=== PATIENT | female | born 1960 | race Caucasian/White ===

== ENCOUNTER → 2016-09-22 | Outpatient (CLI) | payer BC ==
[~2016-09-22] MED LIST: CETI10TA10 PO; DIPH-416 PO; ESCI1TAB10 PO; FLNIN NAE; HYDR-5688 PO; IBUP-1050 PO; LXP/10 PO; MELO7.5T5 PO; PANT1TAB3 PO; PROM25TA9 PO; QSTP PO
--- NOTE | 2016-09-23 13:47 | MAMMOGRAPHY REPORT ---
BILATERAL DIGITAL SCREENING MAMMOGRAM TOMOSYNTHESIS WITH CAD: 09/22/2016 CLINICAL HISTORY: Routine screening. Patient has no complaints. TECHNIQUE: Breast tomosynthesis in addition to standard 2D mammography was performed. Current study was also evaluated with a Computer Aided Detection (CAD) system. COMPARISON: Comparison is made to exams dated: 09/18/2015 mammogram, 05/22/2013 mammogram, 06/26/2014 mammogram, 11/10/2011 mammogram, 05/15/2010 mammogram - [facility], and 04/22/2009. BREAST COMPOSITION: There are scattered areas of fibroglandular density in both breasts. FINDINGS: The parenchymal pattern is unchanged. There are a few stable benign rim calcifications i n the breasts. No new suspicious mass, architectural distortion or cluster of microcalcifications i s seen. IMPRESSION: ACR BI-RADS CATEGORY 2: BENIGN There is no mammographic evidence of malignancy. A 1 year screening mammogram is recommended. The p atient will receive written notification of the results. Approximately 10% of breast cancers are not detected with mammography. A negative mammographic repor t should not delay biopsy if a clinically suggestive mass is present. Maria A Maradiaga M.D. ay/:09/22/2016 17:06:51 Research Recruiter: Ava OLIVA(R)(M), [facility] letter sent: Normal 1/2 BI-RADS Code: ACR BI-RADS Category 2: Benign
== END | disposition home or self-care (01) ==
LOC: C.MAMM 16:39
PROVIDERS: ATTEND Obstetrics & Gynecology
DX: Z12.31 Encounter for screening mammogram for malignant neoplasm of breast (principal)

== ENCOUNTER → 2016-10-08 | Outpatient (CLI) | payer BC ==
[~2016-10-08] MED LIST changes: -PANT1TAB3 PO; +PANT1TAB48 PO
[2016-10-08 14:18] LABS: URINE APPEARANCE CLOUDY (CLEAR); URINE BILIRUBIN NEG (NEG); URINE COLOR YELLOW; URINE NITRITE POS (NEG); URINE SPECIFIC GRAVITY 1.009 (1.000-1.030); UROBILINOGEN NEG (NEG)
[2016-10-08 14:22] LABS: MANUAL MICROSCOPIC REQUIRED? NO; REVIEW REQ? YES
== END | disposition home or self-care (01) ==
LOC: C.LABSPEC 13:37
PROVIDERS: ATTEND Obstetrics & Gynecology
DX: R39.9 Unspecified symptoms and signs involving the genitourinary system (principal)

== ENCOUNTER → 2016-11-03 | Outpatient (CLI) | payer BC | END | disposition home or self-care (01) | LOC: C.PAPS 16:19 | PROVIDERS: ATTEND Obstetrics & Gynecology | DX: Z01.419 Encounter for gynecological examination (general) (routine) without abnormal findings (principal); N39.3 Stress incontinence (female) (male) ==

== ENCOUNTER 2017-02-26 19:53 | Emergency (ER) | payer BC ==
[~2017-02-26] VITALS: Ht 170.2 cm; Wt 91.0 kg
[~2017-02-26 19:53] MED LIST changes: -CETI10TA10 PO; -ESCI1TAB10 PO; -HYDR-5688 PO; -LXP/10 PO; -PANT1TAB48 PO; -PROM25TA9 PO
[2017-02-26 19:58] VITALS: TEMP 36.8; Ht 170.2 cm; Wt 91.0 kg
[2017-02-26] MEDS ORDERED: SODIUM CHLORIDE 0.9% 1000ML 1,000 ML IV STA (20:20)
[2017-02-26 20:32] LABS: BASO % 0.4 %; BASO ABS # 0.04 K/uL (0-0.2); COMPLETE YES; EOS % 2.1 %; HEMATOCRIT 36.2 % (37-47); IG% 0.3 %; LYMPH ABS # 2.52 K/uL (1.2-3.4); MEAN CELL VOLUME 86.8 fL (80-100); MEAN CORPUSCULAR HGB CONC 33.4 g/dl (32-36); MEAN PLATELET VOLUME 10.9 fL (7.4-10.4); MONO % 6.4 %; NEUT % 63.8 %; PLATELET COUNT 220 K/uL (130-400); RED BLOOD COUNT 4.17 M/uL (4.2-5.4); WHITE BLOOD COUNT 9.32 K/uL (4.8-10.8)
[2017-02-26] MEDS ORDERED: ONDANSETRON 8 MG/54 ML D5W IV STA (20:35)
[2017-02-26 20:44] LABS: URINE APPEARANCE CLEAR (CLEAR); URINE BILIRUBIN NEG (NEG); URINE COLOR YELLOW; URINE NITRITE NEG (NEG); URINE SPECIFIC GRAVITY 1.029 (1.000-1.030); UROBILINOGEN NEG (NEG); ZZUR CULT IF INDIC CLEAN CATCH NO
[2017-02-26] MEDS ORDERED: HYDROmorphone INJ 1 MG/ML SYR IV PRN (20:45)
[2017-02-26 20:50] LABS: ALT/SGPT 25 U/L (12-78); AST/SGOT 16 U/L (15-37); BLOOD UREA NITROGEN 22 mg/dl (7-18); CALCIUM 8.8 mg/dl (8.5-10.1); CARBON DIOXIDE 28 mmol/L (21-32); CHLORIDE 105 mmol/L (98-107); GLUCOSE 126 mg/dl (70-99); POTASSIUM 3.9 mmol/L (3.5-5.1); SODIUM 142 mmol/L (136-145)
[2017-02-26 20:53] LABS: ALKALINE PHOSPHATASE 99 U/L (45-117); MANUAL MICROSCOPIC REQUIRED? NO; REVIEW REQ? YES
[2017-02-26 21:02] LABS: URINE MUCUS PRESENT (NONE PRSENT)
[2017-02-26 21:03] LABS: PREG INTERNAL NEGATIVE QC NEG CLEAR BACKGROUND; PREG INTERNAL POSITIVE QC POS CONTROL LINE
[2017-02-26] MEDS ORDERED: KETOROLAC TROMETHAMINE 30 MG/ML VIAL IV STA (21:14)
--- NOTE | 2017-02-26 21:24 | DIAGNOSTIC IMAGING REPORT ---
CT OF THE ABDOMEN AND PELVIS WITHOUT CONTRAST, STONE PROTOCOL CLINICAL HISTORY: Right flank pain and hematuria. COMPARISON STUDY: CT of the abdomen and pelvis January 07, 2016. TECHNIQUE: Helical axial images of the abdomen and pelvis were obtained without IV or oral contrast according to renal stone protocol. FINDINGS: A 3 mm distal right ureteral calculus just proximal to the ureterovesical junction results in mild right hydroureteronephrosis. There is mild right perinephric infiltration. No additional urinary calculi are identified. There is a 1 cm left hepatic lobe cyst. Fatty infiltration of the liver is noted. Unenhanced images of the spleen, adrenal glands and pancreas are normal. There is no evidence for a bowel obstruction. The appendix is normal. There is colonic diverticulosis without evidence for acute diverticulitis. No suspicious osseous lesions are present. There is no lymphadenopathy. IMPRESSION: 1. 3 mm distal right ureteral calculus which results in mild right hydroureteronephrosis. 2. Colonic diverticulosis without evidence for acute diverticulitis. Electronically signed by: Ramon Dick M.D. 02/26/2017 9:23 PM Dictated Date/Time: 02/26/2017 9:17 PM
[2017-02-26] MEDS ORDERED: LXP/10 PO (21:34)
[2017-02-26] MEDS ORDERED: PANT1TAB48 PO (21:34)
[2017-02-26] MEDS ORDERED: CETI10TA10 PO (21:34)
[2017-02-26] MEDS ORDERED: ESCI1TAB10 PO (21:34)
[2017-02-26] MEDS ORDERED: NORCO 5/325MG HOME PACK PO ONE (22:00)
[2017-02-26] MEDS ORDERED: PHENERGAN 25MG HOMEPACK PO ONE (22:00)
[2017-02-26] MEDS ORDERED: PROM25TA9 PO (22:02)
[2017-02-26] MEDS ORDERED: HYDR-5688 PO (22:02)
[2017-02-26 22:21] VITALS: BP 134/71; PULSE 81; O2SAT 94
--- NOTE | 2017-02-26 23:37 | EMERGENCY ROOM VISIT NOTE ---
History Report prepared by Jas: Mariia Aguirre Under the Supervision of: Dr. Ignacio Charlton M.D. First contact with patient: 20:20 Chief Complaint: BACK PAIN Stated Complaint: PAIN LWR BACK RIGHT SIDE,NAUSEA History of Present Illness The patient is a 56 year old female who presents to the Emergency Room with complaints of sudden lower right back pain beginning 10 hours ago. She rates the pain at a 10/10. The patient reports that she has been nauseous from the pain, and that there was some heme in her urine this morning. The patient reports that she did not fall or do anything unusual that may have prompted the pain. She has a history of colitis and diverticulitis, but has no history of an appendectomy or cholecystectomy. Pt denies LOC, headache, fevers, chills, diaphoresis, visual changes, neck pain, chest pain, breathing difficulties, vomiting, abdominal pain, melena, hematochezia, numbness, weakness, lymphadenopathy, rash, or other complaints. Source of History: patient Onset: 10 hours ago Position: back (right lower) Symptom Intensity: rated at a 10/10 Timing: other (sudden) Review of Systems See HPI for pertinent positives and negatives. A total of ten systems were reviewed and were otherwise negative. Past Medical & Surgical Medical Problems: (1) Colitis (2) Diverticulitis Family History No pertinent family history stated. Social History Smoking Status: Never Smoker Alcohol Use: occasionally Drug Use: none Marital Status: Housing Status: lives with family Occupation Status: employed Current/Historical Medications Scheduled Cetirizine Hcl (Zyrtec), 10 MG PO QPM Escitalopram Oxalate (Lexapro), 10 MG PO QPM Escitalopram Oxalate (Lexapro), 20 MG PO QPM Pantoprazole (Protonix), 40 MG PO DAILY Scheduled PRN Hydrocodone/Acetaminophen 5MG/325MG ([place] 5MG/325MG), 1-2 TABS PO Q6H PRN for Pain Ibuprofen (Advil), 600 MG PO Q6 PRN for Pain or Fever Meloxicam (Mobic), 7.5-15 MG PO DAILY PRN for Pain Promethazine Hcl (Phenergan), 25 MG PO Q6H PRN for Nausea Allergies Coded Allergies: Metronidazole (Verified Allergy, Severe, JOINT PAIN, SWELLING, 6/10/17) Latex1 -Allergic Contact Dermititis (Verified Allergy, Intermediate, ANAPHYLAXIS, 09/16/14) PT REPORTS HAVING INTERNAL SWELLING, REDNESS, & IRRITATION FROM VAGINAL ASSESSMENT Penicillins (Unverified Allergy, Mild, ?, 09/16/14) Physical Exam Vital Signs Date Time Temp Pulse Resp B/P (MAP) Pulse Ox O2 Delivery O2 Flow Rate FiO2 02/26/17 22:21 81 20 134/71 94 02/26/17 21:05 81 20 153/86 97 Room Air 02/26/17 19:58 36.8 72 20 137/83 94 Room Air Physical Exam GENERAL: Awake, alert, uncomfortable-appearing, in no distress HENT: Normocephalic, atraumatic. Oropharynx unremarkable. EYES: Normal conjunctiva. Sclera non-icteric. NECK: Supple. No nuchal rigidity. FROM. No JVD. RESPIRATORY: Clear to auscultation. CARDIAC: Regular rate, normal rhythm. Extremities warm and well perfused. Pulses equal. ABDOMEN: Soft, non-distended. No tenderness to palpation. No rebound or guarding. No masses. RECTAL: Deferred. MUSCULOSKELETAL: Chest examination reveals no tenderness. The back is symmetrical on inspection without obvious abnormality. Right CVA tenderness to palpation. Right flank tenderness. No joint edema. LOWER EXTREMITIES: Calves are equal size bilaterally and non-tender. No edema. No discoloration. NEURO: Normal sensorium. No sensory or motor deficits noted. SKIN: No rash or jaundice noted. Medical Decision & Procedures ER Provider Diagnostic Interpretation: 2149: Radiology results as stated below per my review and radiologist interpretation CT OF THE ABDOMEN AND PELVIS WITHOUT CONTRAST, STONE PROTOCOL CLINICAL HISTORY: Right flank pain and hematuria. COMPARISON STUDY: CT of the abdomen and pelvis January 07, 2016. TECHNIQUE: Helical axial images of the abdomen and pelvis were obtained without IV or oral contrast according to renal stone protocol. FINDINGS: A 3 mm distal right ureteral calculus just proximal to the ureterovesical junction results in mild right hydroureteronephrosis. There is mild right perinephric infiltration. No additional urinary calculi are identified. There is a 1 cm left hepatic lobe cyst. Fatty infiltration of the liver is noted. Unenhanced images of the spleen, adrenal glands and pancreas are normal. There is no evidence for a bowel obstruction. The appendix is normal. There is colonic diverticulosis without evidence for acute diverticulitis. No suspicious osseous lesions are present. There is no lymphadenopathy. IMPRESSION: 1. 3 mm distal right ureteral calculus which results in mild right hydroureteronephrosis. 2. Colonic diverticulosis without evidence for acute diverticulitis. Electronically signed by: Ramon Dick M.D. 02/26/2017 9:23 PM Dictated Date/Time: 02/26/2017 9:17 PM Laboratory Results 02/26/17 20:20 Red Blood Count 4.17, Mean Corpuscular Volume 86.8, Mean Corpuscular Hemoglobin 29.0, Mean Corpuscular Hemoglobin Concent 33.4, Mean Platelet Volume 10.9, Neutrophils (%) (Auto) 63.8, Lymphocytes (%) (Auto) 27.0, Monocytes (%) (Auto) 6.4, Eosinophils (%) (Auto) 2.1, Basophils (%) (Auto) 0.4, Neutrophils # (Auto) 5.93, Lymphocytes # (Auto) 2.52, Monocytes # (Auto) 0.60, Eosinophils # (Auto) 0.20, Basophils # (Auto) 0.04 02/26/17 20:20 Test 02/26/17 20:20 White Blood Count 9.32 K/uL (4.8-10.8) Red Blood Count 4.17 M/uL (4.2-5.4) Hemoglobin 12.1 g/dL (12.0-16.0) Hematocrit 36.2 % (37-47) Mean Corpuscular Volume 86.8 fL (80-100) Mean Corpuscular Hemoglobin 29.0 pg (25-34) Mean Corpuscular Hemoglobin Concent 33.4 g/dl (32-36) Platelet Count 220 K/uL (130-400) Mean Platelet Volume 10.9 fL (7.4-10.4) Neutrophils (%) (Auto) 63.8 % Lymphocytes (%) (Auto) 27.0 % Monocytes (%) (Auto) 6.4 % Eosinophils (%) (Auto) 2.1 % Basophils (%) (Auto) 0.4 % Neutrophils # (Auto) 5.93 K/uL (1.4-6.5) Lymphocytes # (Auto) 2.52 K/uL (1.2-3.4) Monocytes # (Auto) 0.60 K/uL (0.11-0.59) Eosinophils # (Auto) 0.20 K/uL (0-0.5) Basophils # (Auto) 0.04 K/uL (0-0.2) RDW Standard Deviation 42.3 fL (36.4-46.3) RDW Coefficient of Variation 13.1 % (11.5-14.5) Immature Granulocyte % (Auto) 0.3 % Immature Granulocyte # (Auto) 0.03 K/uL (0.00-0.02) Urine Color YELLOW Urine Appearance CLEAR (CLEAR) Urine pH 5.0 (4.5-7.5) Urine Specific Ethel 1.029 (1.000-1.030) Urine Protein NEG (NEG) Urine Glucose (UA) NEG (NEG) Urine Ketones TRACE (NEG) Urine Occult Blood 2+ (NEG) Urine Nitrite NEG (NEG) Urine Bilirubin NEG (NEG) Urine Urobilinogen NEG (NEG) Urine Leukocyte Esterase NEG (NEG) Urine WBC (Auto) 1-5 /hpf (0-5) Urine RBC (Auto) 5-10 /hpf (0-4) Urine Hyaline Casts (Auto) 1-5 /lpf (0-5) Urine Epithelial Cells (Auto) 10-20 /lpf (0-5) Urine Bacteria (Auto) NEG (NEG) Urine Crystals CALCIUM OXALATE (NONE Urine Mucus PRESENT (NONE PRSENT) Anion Gap 9.0 mmol/L (3-11) Est Creatinine Clear Calc Drug Dose 59.9 ml/min Estimated GFR () 58.1 Estimated GFR (Non- 50.1 BUN/Creatinine Ratio 18.0 (10-20) Calcium Level 8.8 mg/dl (8.5-10.1) Total Bilirubin 0.2 mg/dl (0.2-1) Direct Bilirubin < 0.1 mg/dl (0-0.2) Aspartate Amino Transf (AST/SGOT) 16 U/L (15-37) Alanine Aminotransferase (ALT/SGPT) 25 U/L (12-78) Alkaline Phosphatase 99 U/L (45-117) Total Protein 7.2 gm/dl (6.4-8.2) Albumin 3.7 gm/dl (3.4-5.0) Lipase 108 U/L (73-393) Human Chorionic Gonadotropin, Qual NEG (NEG) Laboratory results reviewed by me Medications Administered Medications (Trade) Dose Ordered Sig/Ritu Route Start Time Stop Time Status Last Admin Dose Admin Sodium Chloride 1,000 ml @ 125 mls/hr Q8H STAT IV 02/26/17 20:20 02/26/17 22:48 DC 02/26/17 20:20 125 MLS/HR Ondansetron HCl (Zofran 8mg Iv) 8 mg NOW STAT IV 02/26/17 20:35 02/26/17 20:37 DC 02/26/17 20:44 8 MG Hydromorphone HCl (Dilaudid Inj) 1 mg Q15M PRN IV 02/26/17 20:45 02/26/17 22:48 DC 02/26/17 21:11 1 MG Ketorolac Tromethamine (Toradol Inj) 10 mg NOW STAT IV 02/26/17 21:14 02/26/17 21:15 DC 02/26/17 21:19 10 MG Acetaminophen/ Hydrocodone Bitart ([place] 5/325mg Home Pack) 1 homepack UD ONCE PO 02/26/17 22:00 02/26/17 22:01 DC 02/26/17 22:13 1 HOMEPACK Promethazine HCl (Phenergan 25MG Home Pack) 1 homepack UD ONCE PO 02/26/17 22:00 02/26/17 22:01 DC 02/26/17 22:14 1 HOMEPACK ED Course 2014: The patient was evaluated in room B11. A complete history and physical exam was performed. 2019: Ordered Sodium Chloride 1,000 ml @ 125 mls/hr IV. 2034: Ordered Ondansetron HCl 8 mg IV. 2044: Ordered Dilaudid Inj 1 mg IV. 2109: I checked on the patient, and she is feeling better. 2113: Ordered Toradol Inj 10 mg IV. 2155: I checked on the patient, and she is doing well. 2199: Ordered Promethazine HCl 1 homepack PO, Hydrocodone Bitart/Acetaminophen 1 homepack PO. 2209: I reevaluated the patient. Discussed results and discharge instructions: She verbalized understanding and agreement. The patient is ready for discharge. Medical Decision Medication Reconciliation: I attest that I have personally reviewed the patient' s current medication list Blood pressure screening: Patient was found to have normal blood pressure on screening and does not require follow-up. Prior records/ancillary studies reviewed. Triage Nursing notes reviewed and agree them. Additional history obtained from the family. The patient's history was concerning for flank and abdominal pain. Differential diagnosis: Etiologies such as renal colic, appendicitis, diverticulitis, mesenteric ischemia, aortic pathology, infections, inflammatory bowel disease, PUD, biliary pathology, UTI, as well as others were entertained. Physical examination findings: As above. ER treatment provided: IV normal saline IV Zofran IV Dilaudid IV Toradol On reassessment the patient felt much better. Diagnostic interpretation by me: The labs revealed an unremarkable CBC and chemistry panel.. Urinalysis revealed hematuria. There was no sign of UTI. Imaging studies: CT of the abdomen and pelvis as above. It appears that the patient has isolated renal colic from a right sided stone. She is doing very well. Conservative management was discussed and she was comfortable. By the evaluation outlined above emergent etiologies such as appendicitis, diverticulitis, mesenteric ischemia, aortic pathology, infections, inflammatory bowel disease, PUD, biliary pathology, UTI, as well as others were deemed relatively unlikely. The patient and were informed about the findings as listed above. All questions were answered and they were pleased with the treatment. Return instructions were outlined and the patient was discharged in stable condition. Outpatient prescription management: Phenergan [place] Referral: The pt was referred to [facility] for follow up care regarding their stone. The patient was referred back to her primary care physician for follow-up in 2 to 3 days for a recheck of the current condition due to her blood pressure and liver findings on CT. The chart was completed utilizing [employer] Speech voice recognition software. Grammatical errors, random word insertions, pronoun errors, and incomplete sentences are an occasional consequence of this system due to software limitations, ambient noise, and hardware issues. Any formal questions or concerns about the content, text, or information contained within the body of this dictation should be directly addressed to the physician for clarification. [place] Drug Monitoring Program Search Results: no issues identified Impression Primary Impression: Ureterolithiasis Scribe Attestation The scribe's documentation has been prepared under my direction and personally reviewed by me in its entirety. I confirm that the note above accurately reflects all work, treatment, procedures, and medical decision making performed by me. Departure Information Dispostion Home / Self-Care Prescriptions Hydrocodone/Acetaminophen 5MG/325MG ([place] 5MG/325MG) Tab 1-2 TABS PO Q6H Y for Pain, #20 TAB Prov: Ignacio Charlton MD 02/26/17 Promethazine Hcl (Phenergan) 25 Mg Tab 25 MG PO Q6H Y for Nausea, #10 TAB Prov: Ignacio Charlton MD 02/26/17 Referrals Pro,Hari Hancock M.D. (PCP) Forms HOME CARE DOCUMENTATION FORM, IMPORTANT VISIT INFORMATION Patient Instructions My [facility] Additional Instructions KIDNEY STONE INSTRUCTIONS: Do not drive today because of medication received in the Emergency Room. Hydrocodone/acetaminophen 5/325mg: Take 1-2 pills every 6 hours as needed for pain. Avoid additional Acetaminophen/Tylenol, alcohol, operating machinery or dangerous equipment, working on ladders or roofs, DRIVING, or situations where being under the influence may be dangerous. It is recommended to use a stool softener such as Colace, 100mg twice daily while taking this medication to avoid constipation. Phenergan 25mg: Take one every six hours as needed for nausea. Avoid alcohol, operating machinery or dangerous equipment, working on ladders or roofs, DRIVING , or situations where being under the influence may be dangerous. Ibuprofen(Motrin, Advil) may be used for fever or pain. Use 600mg every six hours as needed. Take with food. Avoid using more than 2400mg in a 24 hour period. Do not use 2400mg per day for more than three consecutive days without physician direction. Prolonged inappropriate use can lead to stomach upset or ulcers. This medication can be taken if you need to drive, work, or perform activities which may be dangerous when taking narcotic pain medication. (AND/OR) Acetaminophen(Tylenol) may be used for fever or pain. Use 1000mg every six hours as needed. Avoid using more than 4000mg in a 24 hour period. This medication can be taken if you need to drive, work, or perform activities which may be dangerous when taking narcotic pain medication. Strain your urine and collect all the stones or debris for the urologists. Rest and avoid strenuous activity until your stone passes and symptoms resolve. Drink plenty of fluids. Return to the ER for worsening abdominal or back pain, vomiting, fevers, passing out, or as needed. Follow up with [facility] Tuesday, [phone], to arrange a visit. Follow-up with your primary care physician in 2 to 3 days for a recheck of your current condition, a blood pressure check, and a follow-up on your liver findings.
== END 2017-02-26 22:23 | disposition home or self-care (01) ==
LOC: C.EDB 19:54
DX: N20.1 Calculus of ureter (principal); K57.92 Diverticulitis of intestine, part unspecified, without perforation or abscess without bleeding; Z79.899 Other long term (current) drug therapy; Z87.19 Personal history of other diseases of the digestive system; Z88.0 Allergy status to penicillin; Z88.8 Allergy status to other drugs, medicaments and biological substances; Z91.040 Latex allergy status

== ENCOUNTER → 2017-05-20 | Outpatient (CLI) | payer BC ==
[~2017-05-20] MED LIST changes: +CETI10TA10 PO; -DIPH-416 PO; +ESCI1TAB10 PO; -FLNIN NAE; +HYDR-5688 PO; +LXP/10 PO; +PANT1TAB48 PO; +PROM25TA9 PO; -QSTP PO
--- NOTE | 2017-05-20 14:12 | DIAGNOSTIC IMAGING REPORT ---
KUB HISTORY: KIDNEY STONES. Follow-up exam. COMPARISON: CT abdomen and pelvis 02/26/2017 FINDINGS: The bowel gas pattern is non-obstructive. There is no organomegaly. The previously noted obstructing 3 mm calculus of the right ureterovesicular junction is not identified. No nephrolithiasis seen. No pneumoperitoneum or pneumatosis. No fracture. IMPRESSION: The previously noted 3 mm calculus of the right ureterovesicular junction on CT study dated 02/26/2017 is no longer seen. No nephrolithiasis or ureterolithiasis identified. Electronically signed by: Eric Grant M.D. 05/20/2017 2:11 PM Dictated Date/Time: 05/20/2017 2:08 PM
== END | disposition home or self-care (01) ==
LOC: C.RAD1850 13:51
PROVIDERS: ATTEND Internal Medicine
DX: N20.0 Calculus of kidney (principal)

== ENCOUNTER → 2017-09-16 | Outpatient (CLI) | payer BC ==
[~2017-09-16] MED LIST changes: -HYDR-5688 PO; +PANT1TAB3 PO; -PANT1TAB48 PO; -PROM25TA9 PO
[2017-09-16 13:44] LABS: AST/SGOT 16 U/L (15-37); BLOOD UREA NITROGEN 15 mg/dl (7-18); CALCIUM 8.6 mg/dl (8.5-10.1); CARBON DIOXIDE 31 mmol/L (21-32); CHOLESTEROL 217 mg/dl (0-200); CREATININE 0.79 mg/dl (0.60-1.20); GLUCOSE 114 mg/dl (70-99); POTASSIUM 3.9 mmol/L (3.5-5.1); SODIUM 140 mmol/L (136-145)
[2017-09-16 13:49] LABS: LDL CHOLESTEROL CALCULATED 141 mg/dl
[2017-09-17 08:05] LABS: HEMOGLOBIN A1C 5.8 % (4.5-5.6)
== END | disposition home or self-care (01) ==
LOC: C.LABBC 09:46
PROVIDERS: ATTEND Internal Medicine
DX: E78.5 Hyperlipidemia, unspecified (principal); R73.9 Hyperglycemia, unspecified; N20.0 Calculus of kidney

== ENCOUNTER → 2017-12-12 | Outpatient (CLI) | payer BC | END | disposition home or self-care (01) | LOC: C.PAPS 18:05 | PROVIDERS: ATTEND Obstetrics & Gynecology | DX: Z01.419 Encounter for gynecological examination (general) (routine) without abnormal findings (principal); G43.829 Menstrual migraine, not intractable, without status migrainosus ==

== ENCOUNTER → 2018-05-03 | Outpatient (CLI) | payer BC ==
--- NOTE | 2018-05-04 15:42 | MAMMOGRAPHY REPORT ---
BILATERAL DIGITAL SCREENING MAMMOGRAM TOMOSYNTHESIS WITH CAD: 05/03/2018 CLINICAL HISTORY: Routine screening. Patient has no complaints. TECHNIQUE: The study was acquired using full field digital technology and interpreted from soft copy. Breast tomosynthesis in addition to standard 2D mammography was performed. Current study was also ev aluated with a Computer Aided Detection (CAD) system. COMPARISON: Comparison is made to exams dated: 09/22/2016 mammogram, 10/08/2015 mammogram, 09/18/2015 m ammogram, 06/26/2014 mammogram, 05/22/2013 mammogram, and 11/10/2011 mammogram - [facility]. BREAST COMPOSITION: There are scattered areas of fibroglandular density in both breasts. FINDINGS: No suspicious masses, calcifications, or areas of architectural distortion are noted in either breast . There has been no significant interval change compared to prior exams. Focal asymmetry in the left lateral breast at approximately 3:00 is stable compared to multiple prior exams including the 2009 e xams, and considered benign given long-term stability. IMPRESSION: ACR BI-RADS CATEGORY 2: BENIGN There is no mammographic evidence of malignancy. A 1 year screening mammogram is recommended.( 019) The patient will receive written notification of the results. Some breast cancers are not detected with mammography. A negative mammographic report should not chey y biopsy if a clinically suggestive mass is present. Chelo Escobar M.D. /:05/03/2018 16:14:45 Applique Sewer: RT Milly(Ruben)(Johana)(BD), [facility] letter sent: Normal 1/2 BI-RADS Code: ACR BI-RADS Category 2: Benign
== END | disposition home or self-care (01) ==
LOC: C.MAMM 13:43
PROVIDERS: ATTEND Obstetrics & Gynecology
DX: Z12.31 Encounter for screening mammogram for malignant neoplasm of breast (principal)